=== PATIENT | female | born 1950 | race Caucasian/White ===

== ENCOUNTER 2016-07-12 13:41 | Emergency (ER) | payer OTHER ==
[2016-07-12] MEDS ORDERED: ACETAMINOPHEN 500 MG TAB ONE (14:17)
[2016-07-12 14:22] VITALS: BP 151/78; PULSE 93; RESP 20; TEMP 100.8; O2SAT 98
[2016-07-12] MEDS ORDERED: ACETAMINOPHEN 325 MG TAB PO ONE (14:22)
--- NOTE | 2016-07-12 14:43 | UCPHY ---
H & P Time Seen by Provider: 07/12/16 14:43 Patient Type: New HPI/ROS: HPI: 66-year-old female presents to urgent care with chief concern cough, nasal congestion, difficulty sleeping due to cough. Reports subjective fever associated with myalgias. Symptoms onset 3 days ago associated with chills and sore throat. Had a dry cough for several weeks prior to that. Received a flu shot this year. Using ibuprofen as needed with minimal improvement. Denies dizziness, dysphagia, shortness of breath, chest pain, abdominal pain, nausea, vomiting, diarrhea, rash. Allergic to penicillin. Immunocompetent. Remote history of asthma as a child. No history of pneumonia. ROS:10 point review of systems is negative other than as stated in HPI Smoking Status: Never smoked Physical Exam: 38.2, 93, 20, 151/78, 98% on room air General: Awake, alert, calm, cooperative. No acute distress. Head: Normalocephalic. Atraumatic. EENT: PERRLA. EOMI. No pallor or injection. Anicteric. No nystagmus. No injection. TMs intact bilaterally with normal landmarks. Rhinorrhea present with erythematous turbinates bilaterally. Mildly erythematous oropharynx. Uvula midline. No exudates or lesions. Neck: Supple, nontender. No lymphadenopathy. Full range of motion. No meningismus. Respiratory: Breathing unlabored. Breath sounds equal bilaterally and clear to auscultation. No adventitious sounds. CV: Chest nontender, atraumatic. Heart rate regular. No murmur, distal pulses 2+ bilaterally. Brisk cap refill all extremities. GI: Abdomen soft, nontender. Bowel sounds normoactive and positive x4 quadrants. Neuro: Alert. Oriented x 3. Speech clear. Nonfocal cranial nerves throughout. Sensation intact all extremities. Skin: Skin warm, dry, intact. No rashes, abrasions, or lacerations. Skin turgor normal. Extremities: Full range of motion in all 4 extremities. Strength 5+ all extremities. Constitutional: Initial Vital Signs Temperature (C) 38.2 C 07/12/16 14:15 Heart Rate 93 07/12/16 14:15 Respiratory Rate 20 07/12/16 14:15 Blood Pressure 151/78 H 07/12/16 14:15 O2 Sat (%) 98 07/12/16 14:15 O2 Delivery Mode Room Air Allergies/Adverse Reactions: Penicillins Allergy (Verified 07/12/16 14:14) Home Medications: Medication Instructions Recorded Albuterol Hfa Anes Only [Proair 2 puffs IH QID PRN #1 mdi 07/12/16 Hfa Anes Only] Bp Med 07/12/16 Oseltamivir Phosphate [Tamiflu 75 75 mg PO BID #10 cap 07/12/16 mg (*)] Medical Decision Making - Diagnostics Imaging: Chest x-ray negative for evidence of pneumonia. Significant for mild atelectasis and bronchitis. Final report pending at time this dictation. Interpreted by myself. ED Course/Re-evaluation: 66-year-old female presents to urgent care with chief concern nasal congestion and cough. She is positive for influenza A. Lungs are clear to auscultation bilaterally but she reports wheezes at night. I have prescribed an albuterol inhaler. I have counseled her regarding need for prompt follow up on Thursday for recheck as well as return here or go to ER for worsening symptoms including unremitting fever, shortness of breath, chest pain, nausea or vomiting. Differential Diagnosis: Differential includes but is not limited to influenza, pneumonia, reactive airway disease - Data Points Laboratory Results: 07/12/16 14:25 Influenza Typ A,B (DFA) POSITIVE FOR FLU A H (NEGATIVE) Medications Given: Discontinued Medications Acetaminophen (Tylenol) 1,000 mg PO EDNOW ONE Stop: 07/12/16 14:23 Last Admin: 07/12/16 14:23 Dose: 1,000 mg Departure - Departure Disposition: Home, Routine, Self-Care Clinical Impression: Influenza A Condition: Good Instructions: Influenza (ED) Additional Instructions: Plan: Tamiflu twice daily for 5 days Use your albuterol inhaler 2 puffs every 4-6 hours for shortness of breath, wheezing. Ibuprofen and/or Tylenol as needed for fever You may use Mucinex/guaifenesin over the counter to help expectorate mucus with your cough. Follow up with primary care Thursday for recheck without fail--When you call to schedule appointment, please let the office know you are an "ER follow up" appointment" Return here or go to ER for worsening symptoms including unremitting fever, lethargy, shortness of breath, chest pain, nausea vomiting Referrals: JENNIFER HIGHTOWER [Primary Care Provider] - As per Instructions Prescriptions: Albuterol Hfa Anes Only [Proair Hfa Anes Only] 2 puffs IH QID PRN #1 mdi PRN Reason: Short Of Breath/Dyspnea Oseltamivir Phosphate [Tamiflu 75 mg (*)] 75 mg PO BID #10 cap - PQRS PQRS Measurement: 134: Depression screening and followup, PRIME MD-PHQ2 (12 years and older) Over the last 2 weeks, how often have you been bothered by any of the following problems? 1. Feeling down, depressed, or hopeless? 2. Little interest or pleasure in doing things? Patient answered no to both 1 and 2 130: Documentation of medications. Reviewed all patient medications, doses, route and frequency. 226: Do you smoke? No 47: 65 and older: Advanced care planning. Declined 51: 18 years old and older with diagnosis of COPD, spirometry performance. Patient has no history of COPD 52: 18 years old and older with COPD and symptoms of COPD or FEV1<60% no history of COPD
--- NOTE | 2016-07-12 15:05 | DX ---
PA and Lateral Chest History: Cough x4 weeks in a 66-year-old female; no previous studies are available for comparison. Findings: The heart and mediastinal contours are normal. Pulmonary vascularity is normal. There is c entral peribronchial thickening. Minimal basilar opacities bilaterally are presumably atelectasis. Mi ld hyperexpansion is suspected. There are no alveolar opacities seen to suggest pneumonia. Impression: Findings consistent with airways disease are noted. Basilar atelectasis is seen. A preliminary report was called to [facility] [place] Emergency Department.
== END 2016-07-12 15:06 | disposition home or self-care (01) ==
LOC: CED 13:41
DX: J09.X2 Influenza due to identified novel influenza A virus with other respiratory manifestations (principal)
CPT/HCPCS: 71020; G0463; 87400-PO; 99204-PO

== ENCOUNTER → 2018-06-01 | Outpatient (CLI) | payer MEDICARE, OTHER | LOC: BRMIMAGING 08:52 | PROVIDERS: ATTEND Family Medicine | DX: Z13.820 Encounter for screening for osteoporosis (principal); M81.0 Age-related osteoporosis without current pathological fracture; Z78.0 Asymptomatic menopausal state ==